=== PATIENT | male | born 1975 | race Caucasian/White ===

== ENCOUNTER 2019-08-10 03:13 | Emergency (ER) | payer OTHER ==
[~2019-08-10] VITALS: Ht 172.7 cm; Wt 121.6 kg
--- NOTE | 2019-08-10 03:23 | NUR ---
CALLED PT IN [facility], PT CURRENTLY IN RESTROOM
--- NOTE | 2019-08-10 03:30 | NUR ---
CALLED PT IN [facility]. PT STILL IN RESTROOM.
[2019-08-10 03:35] VITALS: BP 106/58
--- NOTE | 2019-08-10 03:45 | NUR ---
PT PRESENTED TO THE ER WITH A C/O COUGH W/CONGESTION. PT HAS LEFT SIDED EXPIRATORY WHEEZES. PT APPEARS ANXIOUS AND IS WORRIED THAT HE HAS PNEUMONIA. PT IS 96% ON RA. RESP ARE EVEN AND UNLABORED. PT STATED THAT HE IS HOMELESS AND HAS A HX OF BIPOLAR. PT TAKES 2MG OF ABILIFY AND 500MG OF DEPAKOTE BID. PT WAS PLACED ON THE MONITOR AND CONTINUOUS PULSE OX.
--- NOTE | 2019-08-10 03:55 | NUR ---
PT STARTED YELLING AND RAN OUT OF ER ROOM 6. WHEN ASKED WHAT WAS WRONG. PT STATED THAT HE JUST WANTS TO LEAVE. PT RAN OUT OF THE ER. PT WAS NOT SEEN BY .
== END 2019-08-10 03:58 | disposition left against medical advice (07) ==
LOC: ER 03:16
DX: R05 Cough (principal); R09.81 Nasal congestion; Z53.21 Procedure and treatment not carried out due to patient leaving prior to being seen by health care provider

== ENCOUNTER 2020-01-26 12:44 | Emergency (ER) | payer OTHER ==
[~2020-01-26] VITALS: Ht 172.7 cm; Wt 121.6 kg
--- NOTE | 2020-01-26 12:59 | NUR ---
Wound care completed. Dermabond applied to 1cm laceration on foredead
[2020-01-26 13:21] VITALS: BP 135/88
--- NOTE | 2020-01-26 13:22 | NUR ---
patient left accompanied by [employer] in custody
== END 2020-01-26 13:22 ==
LOC: ER 12:47
DX: S01.81XA Laceration without foreign body of other part of head, initial encounter (principal); Z02.89 Encounter for other administrative examinations; W18.39XA Other fall on same level, initial encounter; Y93.89 Activity, other specified; Y92.89 Other specified places as the place of occurrence of the external cause; Y99.8 Other external cause status
CPT/HCPCS: 12011; 99283; A6403